=== PATIENT | male | born 1955 | race Caucasian/White ===

== ENCOUNTER 2017-03-19 14:34 | Emergency (ER) | payer OTHER ==
[~2017-03-19] VITALS: Ht 180.3 cm; Wt 79.4 kg
--- NOTE | 2017-03-19 15:18 | ED CARDIAC/CP/PALPITATIONS ---
History of Present Illness General Chief Complaint: Trunk Injury Stated Complaint: RIB PAIN, S/P FALL Source: patient Exam Limitations: no limitations Vital Signs & Intake/Output Vital Signs & Intake/Output Vital Signs Date Time Temp Pulse Resp B/P B/P Pulse O2 O2 Flow FiO2 Mean Ox Delivery Rate 03/19 2024 97.2 21 16 140/50 97 Room Air 03/19 1900 97.3 22 16 146/68 96 03/19 1829 23 16 140/50 96 03/19 1745 24 16 138/80 96 03/19 1715 21 16 140/80 97 03/19 1648 97.2 22 16 168/74 98 03/19 1525 140/48 03/19 1500 97.0 15 142/40 99 Room Air Room Air ED Intake and Output 03/20 0000 03/19 1200 Intake Total Output Total Balance Patient 175 lb Weight Weight Reported by Patient Measurement Method Allergies Coded Allergies: No Known Allergies (03/19/17) Reconcile Medications No Known Home Medications Triage Note: PT TO ED FOR MID UPPER BACK PAIN. PT HAD EPISODE OF SUDDEN ONSET OF SHARP PAIN TO MID UPPER BACK THAT CAUSED PT TO GET DIZZY AND THEN PASSED OUT. PT THINKS HE HIT HIS BACK ON THE TOILET WHEN HE FELL AND NOW PAIN IS WORSE. PT DENIES CHEST PAIN. DENIES SOB DURING INCIDENT. NO ACUTE DISTRESS NOTED. PT THINKS HE BROKE A RIB ALSO. Triage Nurses Notes Reviewed? yes HPI: 61-year-old male arrived to triage to room 3 for evaluation of left back pain. The patient reports that he had a sudden onset of left sharp stabbing back pain which then caused him to fall and hit his back against the same area. He just got out of the shower and was shaving when this occurred. Denies any trauma before that or heavy lifting or twisting. He thinks he passed out for a few seconds after he hit his back because of the horrific pain. He remembers the whole event. He denies any chest pain or shortness of breath. He was found to be bradycardic at triage and brought right back to room 3 for further evaluation. He denies any significant past medical or surgical history. He reports he drinks 2 or 3 beerS DAILY. He denies any history of Lyme disease. Call made out to Dr. Angel (NENITA FINLEY APRN) Past History Travel History Traveled to [place] past 21 day No Medical History Any Pertinent Medical History? 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 No (NENITA FINLEY APRN) Review of Systems Review of Systems Constitutional: Reports: no symptoms. EENTM: Reports: no symptoms. Respiratory: Reports: no symptoms. Cardiovascular: Reports: no symptoms. GI: Reports: no symptoms. Genitourinary: Reports: no symptoms. Musculoskeletal: Reports: back pain. Skin: Reports: no symptoms. Neurological/Psychological: Reports: no symptoms. Hematologic/Endocrine: Reports: no symptoms. Immunologic/Allergic: Reports: no symptoms. All Other Systems: Reviewed and Negative (NENITA FINLEY APRN) Physical Exam Physical Exam General Appearance: well developed/nourished, no apparent distress, alert, awake , mild distress Head: atraumatic, normal appearance Eyes: Bilateral: normal appearance, PERRL, EOMI. Ears, Nose, Throat: normal pharynx, normal ENT inspection Neck: normal inspection, supple, full range of motion Respiratory: normal breath sounds, TENDERNESS LEFT RIBS POSTERIORLY Cardiovascular: bradycardia Peripheral Pulses: 2+ radial (R), 2+ radial (L) Gastrointestinal: normal bowel sounds, soft, non-tender Back: SEE DIAGRAM WHERE PAIN IS Extremities: normal inspection, normal capillary refill, normal range of motion, no edema Neurologic/Psych: no motor/sensory deficits, awake, alert, oriented x 3, normal gait, normal mood/affect Skin: intact, normal color, warm/dry Core Measures ACS in differential dx? Yes Severe Sepsis Present: No Septic Shock Present: No (NENITA FINLEY APRN) Progress Differential Diagnosis: AMI, aortic dissection, musculoskeletal pain, pneumothorax, RIB FRACTURE, eLECTROLYTE IMBALANCE Plan of Care: Orders Procedure Date/time Status TROPONIN LEVEL 03/19 1811 Complete EKG 03/19 181 Active Add-on Test (ER Only) 03/19 1532 Active Add-on Test (ER Only) 03/19 1522 Active Saline Lock 03/19 1509 Active Telemetry/Picker Machine Operator 03/19 1509 Active TROPONIN LEVEL 03/19 1502 Complete COMPREHENSIVE METABOLIC PANEL 03/19 1502 Complete CBC WITHOUT DIFFERENTIAL 03/19 1502 Complete EKG 03/19 1501 Active THYROID STIMULATING HORMONE 03/19 1500 Complete MAGNESIUM 03/19 1500 Complete LYME TITRE 03/19 1500 Active ETHANOL 03/19 1500 Complete Laboratory Tests 03/19/17 1831: Troponin I 0.03 03/19/17 1704: Urine Color Cancelled, Urine Clarity Cancelled, Urine pH Cancelled, Ur Specific [place] Cancelled, Urine Protein Cancelled, Urine Ketones Cancelled, Urine Nitrite Cancelled, Urine Bilirubin Cancelled, Urine Urobilinogen Cancelled, Ur Leukocyte Esterase Cancelled, Ur Microscopic Cancelled, Urine Hemoglobin Cancelled, Urine Glucose Cancelled 03/19/17 1500: Anion Gap 14, Estimated GFR > 60, BUN/Creatinine Ratio 20.0, Glucose 138 H, Calcium 9.4, Magnesium 2.1, Total Bilirubin 0.9, AST 25, ALT 35, Alkaline Phosphatase 79, Troponin I 0.01, Total Protein 7.9, Albumin 4.5, Globulin 3.4, Albumin/Globulin Ratio 1.3, TSH 0.724, CBC w Diff NO MAN DIFF REQ, RBC 5.17, MCV 90.5, MCH 29.8, RDW 14.9 H, MPV 8.8, Gran % 93.5 H, Lymphocytes % 4.7 L, Monocytes % 1.1 L, Eosinophils % 0.3, Basophils % 0.4, Absolute Granulocytes 16.4 H, Absolute Lymphocytes 0.8 L, Absolute Monocytes 0.2, Absolute Eosinophils 0.1, Absolute Basophils 0.1, PUBS MCHC 32.9 L, Lyme Disease Antibody Pending, Serum Alcohol < 10.0 Initial ED EKG: COMPLETE HEART BLOCK Comments: 3:32 PM patient remains on the heart monitor with pacer pads on his chest. Heart rate remains in the 20s. He is asymptomatic at this time with a stable blood pressure of 140/80. He is complaining just of left sided back pain. Dr. Angel as been notified. dR. Hansen IN TO EVAL. 4:44 PM patient back from CAT scan abdomen and pelvis rule out aortic dissection. There is still a possibility of [place] due to T-wave inversions/[place] noted on ECG. PATIENT: KATERINE DOWLING PRESENT AGE: 61 PATIENT ACCOUNT NO: [id number] : 53 LOCATION: [facility] ORDERING PHYSICIAN: NENITA FINLEY APRN SERVICE DATE: 03/19/17-6191 EXAM TYPE: CAT - CT ABD & PELVIS ANGIOGRAM; CTA CHEST-AORTIC DISSECTION EXAMINATION: CT ANGIOGRAM CHEST CT ANGIOGRAM ABDOMEN AND PELVIS CLINICAL INFORMATION: Left-sided back pain, now in complete heart block. COMPARISON: None TECHNIQUE: Multiple axial noncontrast images through the chest, abdomen and pelvis were obtained. Following intravenous administration of 120 mL of Optiray [address] imaging of the chest, abdomen and pelvis is acquired as per CT angiography protocol. Multiplanar reformatted images are submitted for review. DLP: 1104.48 mGy-cm FINDINGS: VASCULAR FINDINGS: The thoracic and abdominal aorta is normal in caliber and is well opacified. There is no evidence of aortic dissection. There is mild calcific atherosclerosis in the aortic arch. Iidz-ro-[id number] scattered calcific atherosclerosis of the abdominal aorta and iliac arteries is noted. The ascending aorta measures 2.9 cm and descending thoracic aorta measures 2.5 cm in maximum AP diameter. The aortic arch is also normal in caliber measuring 2.6 cm in transverse dimension. There are moderate coronary calcifications. There is mild prominence of the main pulmonary trunk and left main pulmonary artery. There is no filling defect in the pulmonary arterial tree to suggest pulmonary embolism. The SMA, celiac axis and SAMIRA are normal in caliber and well opacified. There are single renal arteries bilaterally which are normal in caliber and well opacified. The iliac arteries are normal in caliber and well opacified. CHEST: Moderate changes of centrilobular emphysema with upper lobe predominance are noted. There are paraseptal emphysematous changes at the lung apices. A 0.5 cm pleural-based nodule is noted at the left lung apex posterolaterally (series 4 image 88). There is a pleural-based 0.6 x 0.8 cm nodule in the posterior left upper lobe laterally (series 4 image [id number]). There is a 0.4 cm subpleural nodule in the right upper lobe posteriorly (series 4 image 105). There is no evidence of mediastinal, hilar or axillary adenopathy. The visualized thyroid gland is unremarkable. Trachea and central bronchi are well patent. There is mild cardiomegaly. No pericardial or pleural effusions. The chest wall soft tissues are unremarkable. ABDOMEN AND PELVIS: The liver is normal in size, shape and attenuation. No focal liver lesion or biliary ductal dilatation is noted. The gallbladder is physiologically distended. A small calcified gallstone is present. No evidence of gallbladder wall thickening or pericholecystic inflammatory changes. The spleen, adrenal glands, pancreas and kidneys are unremarkable. The stomach and small bowel are not dilated. The appendix is normal. The colon is normal in caliber. No evidence of colonic wall thickening or pericolonic fat stranding. The bladder is underdistended, however, grossly unremarkable. Coarse prostatic calcifications are noted. The prostate measures 4.9 cm in maximum transverse dimension. The seminal vesicles are normal. There is no evidence of free intraperitoneal air or fluid. No inflammatory changes or nodularity seen in the omentum and mesentery. There is no evidence of pathologically enlarged lymph nodes. No significant abdominal wall hernia. There is a small umbilical hernia containing fat. OSSEOUS STRUCTURES: No acute or suspicious abnormality is noted in the chest, abdomen or pelvis. Multilevel minimal degenerative changes are noted throughout the thoracolumbar spine. IMPRESSION: 1. No evidence of thoracic or abdominal aortic dissection or aneurysm. There is scattered calcific atherosclerosis of the aorta. Moderate coronary calcifications. 2. No evidence of pulmonary embolism. 3. Mild prominence of the main pulmonary trunk and left main pulmonary artery may suggest pulmonary arterial hypertension. 4. Xgbnpjej-pc-klrqjf changes of emphysema with upper lobe predominance. At least 3 pulmonary nodules in the bilateral upper lobes as described above with the largest one in the left upper lobe with a mean diameter of 0.[address] follow-up in 3 months. According to the UPDATED 2017 Fleischner Society recommendations, the advised follow-up imaging for multiple solid nodules, the largest measuring 6 mm or greater, is: LOW RISK PATIENT: CT at 3-6 months, then consider CT at 18-24 months. HIGH RISK PATIENT: CT at 3-6 months, then at 18-24 months. 5. Cholelithiasis without acute cholecystitis. 6. Mild prostatomegaly. DICTATED BY: FRITZ DISLA,MARIYA DATE/TIME DICTATED:03/19/171648 YOUTH ADVOCATE:JOSHUA DATE/TIME TRANSCRIBED:03/19/171648 CONFIDENTIAL, DO NOT COPY WITHOUT APPROPRIATE AUTHORIZATION. <Electronically signed in Other Vendor System> SIGNED BY: MARIYA HU MD 03/19/17 1749 1759 PM explained CAT scan results to patient and family. Dr. Angel is now in the department and he will get in to see patient. 1941 Dr. Angel speaking with Dr. Hackett now about pacemaker insertion. DR. Alfonso PULP SCREEN OPERATOR FOR GROUP-UNABLE TO GET A HOLD OF SO CALLED and spoke to cardiology at [facility]. Dr. Chong Pérez is taking patient- cardiology. He will get CT surgery PA to arrange admission to the ICU. [facility] has been called. Additional findings on CAT scan discussed with family and patient. (NENITA FINLEY APRN) Departure Departure Time of Disposition: 2033 Disposition: OTHER [facility] (ACUTE) Condition: Stable Clinical Impression Primary Impression: Complete heart block Referrals: GAMEZ CULLEN DISLA (PCP/Family) Departure Forms: Customer Survey General Discharge Information Prescriptions: Current Visit Scripts No Known Home Medications (NENITA FINELY APRN) PA/ASSEMBLY WORKER Co-Sign Statement Statement: ED Attending supervision documentation- [X] I saw and evaluated the patient. I have also reviewed all the pertinent lab results and diagnostic results. I agree with the findings and the plan of care as documented in the PA's/ASSEMBLY WORKER's documentation. [X] I have reviewed the ED Record and agree with the PA's/ASSEMBLY WORKER's documentation. [] Additions or exceptions (if any) to the PAs/ASSEMBLY WORKER's note and plan are summarized below: [] (JESE DILSA,ALFIE Mccollum) Critical Care Note Critical Care Note Critical Care Time: 75-104 min (NENITA FINLEY APRN)
[2017-03-19 15:31] LABS: ABSOLUTE BASOPHIL COUNT 0.1 /CUMM (0.0-0.2); ABSOLUTE EOSINOPHIL COUNT 0.1 /CUMM (0.0-0.7); ABSOLUTE GRANULOCYTE CT 16.4 /CUMM (1.4-6.5); ABSOLUTE LYMPH COUNT 0.8 /CUMM (1.2-3.4); ABSOLUTE MONOCYTE COUNT 0.2 /CUMM (0.10-0.60); BASOPHIL % 0.4 % (0.0-2.0); EOSINOPHIL % 0.3 % (0-5); HEMATOCRIT 46.8 % (42-52); MEAN CORPUSCULAR HGB 29.8 PG (27.0-31.0); MEAN CORPUSCULAR HGB CONC 32.9 G/DL (33.0-37.0); MEAN CORPUSCULAR VOLUME 90.5 FL (80.0-94.0); MEAN PLATELET VOLUME 8.8 FL (7.4-10.4); PLATELET COUNT 256 /CUMM (130-400); RBC DISTRIBUTION WIDTH 14.9 % (11.5-14.5); RED BLOOD CELL CT 5.17 /CUMM (4.70-6.10); WHITE BLOOD CELL COUNT 17.5 /CUMM (4.8-10.8)
[2017-03-19 15:40] LABS: GRANULOCYTE % 93.5 % (42.2-75.2)
--- NOTE | 2017-03-19 17:49 | CT SCAN REPORT ---
EXAMINATION: CT ANGIOGRAM CHEST CT ANGIOGRAM ABDOMEN AND PELVIS CLINICAL INFORMATION: Left-sided back pain, now in complete heart block. COMPARISON: None TECHNIQUE: Multiple axial noncontrast images through the chest, abdomen and pelvis were obtained. Following intravenous administration of 120 mL of Optiray [address] imaging of the chest, abdomen and pelvis is acquired as per CT angiography protocol. Multiplanar reformatted images are submitted for review. DLP: 1104.48 mGy-cm FINDINGS: VASCULAR FINDINGS: The thoracic and abdominal aorta is normal in caliber and is well opacified. There is no evidence of aortic dissection. There is mild calcific atherosclerosis in the aortic arch. [id number] scattered calcific atherosclerosis of the abdominal aorta and iliac arteries is noted. The ascending aorta measures 2.9 cm and descending thoracic aorta measures 2.5 cm in maximum AP diameter. The aortic arch is also normal in caliber measuring 2.6 cm in transverse dimension. There are moderate coronary calcifications. There is mild prominence of the main pulmonary trunk and left main pulmonary artery. There is no filling defect in the pulmonary arterial tree to suggest pulmonary embolism. The SMA, celiac axis and SAMIRA are normal in caliber and well opacified. There are single renal arteries bilaterally which are normal in caliber and well opacified. The iliac arteries are normal in caliber and well opacified. CHEST: Moderate changes of centrilobular emphysema with upper lobe predominance are noted. There are paraseptal emphysematous changes at the lung apices. A 0.5 cm pleural-based nodule is noted at the left lung apex posterolaterally (series 4 image 88). There is a pleural-based 0.6 x 0.8 cm nodule in the posterior left upper lobe laterally (series 4 image [id number]). There is a 0.4 cm subpleural nodule in the right upper lobe posteriorly (series 4 image 105). There is no evidence of mediastinal, hilar or axillary adenopathy. The visualized thyroid gland is unremarkable. Trachea and central bronchi are well patent. There is mild cardiomegaly. No pericardial or pleural effusions. The chest wall soft tissues are unremarkable. ABDOMEN AND PELVIS: The liver is normal in size, shape and attenuation. No focal liver lesion or biliary ductal dilatation is noted. The gallbladder is physiologically distended. A small calcified gallstone is present. No evidence of gallbladder wall thickening or pericholecystic inflammatory changes. The spleen, adrenal glands, pancreas and kidneys are unremarkable. The stomach and small bowel are not dilated. The appendix is normal. The colon is normal in caliber. No evidence of colonic wall thickening or pericolonic fat stranding. The bladder is underdistended, however, grossly unremarkable. Coarse prostatic calcifications are noted. The prostate measures 4.9 cm in maximum transverse dimension. The seminal vesicles are normal. There is no evidence of free intraperitoneal air or fluid. No inflammatory changes or nodularity seen in the omentum and mesentery. There is no evidence of pathologically enlarged lymph nodes. No significant abdominal wall hernia. There is a small umbilical hernia containing fat. OSSEOUS STRUCTURES: No acute or suspicious abnormality is noted in the chest, abdomen or pelvis. Multilevel minimal degenerative changes are noted throughout the thoracolumbar spine. IMPRESSION: 1. No evidence of thoracic or abdominal aortic dissection or aneurysm. There is scattered calcific atherosclerosis of the aorta. Moderate coronary calcifications. 2. No evidence of pulmonary embolism. 3. Mild prominence of the main pulmonary trunk and left main pulmonary artery may suggest pulmonary arterial hypertension. 4. Lsysaflb-us-yqrmxw changes of emphysema with upper lobe predominance. At least 3 pulmonary nodules in the bilateral upper lobes as described above with the largest one in the left upper lobe with a mean diameter of 0.[address] follow-up in 3 months. According to the UPDATED 2017 Fleischner Society recommendations, the advised follow-up imaging for multiple solid nodules, the largest measuring 6 mm or greater, is: LOW RISK PATIENT: CT at 3-6 months, then consider CT at 18-24 months. HIGH RISK PATIENT: CT at 3-6 months, then at 18-24 months. 5. Cholelithiasis without acute cholecystitis. 6. Mild prostatomegaly.
--- NOTE | 2017-03-19 18:49 | Cons- Cardiology ---
General Information and HPI Consulting Request Date of Consult: 03/19/17 Requested By: Butch SAWANT DAVID Reason for Consult: Complete heart block. Source of Information: patient, family, old records Exam Limitations: no limitations History of Present Illness: Mr. Louis Harrell is a 61-year-old male with a history of long-standing heavy tobacco use and previously treated hypertension who presented to the ED earlier following a syncopal episode at home and who was found to be in complete heart block with a ventricular escape of around 24 bpm with evidence of a left posterior fascicular block, right bundle branch block, and markedly abnormal deep precordial T-wave abnormalities. He states that he was in his usual good state of health and after taking a shower began shaving. When he was approximally penitentiary done he experienced profound dizziness and felt a severe sharp pain in the left side of his back that he thinks lasted approximately 10 seconds before he lost consciousness. He came to on the bathroom floor and realized he had struck his back on the toilet. He was aware of his surroundings, but still felt some dizziness. He denied any other symptoms. When the back discomfort persisted he sought ED evaluation. He denies any history of coronary, valvular, dysrhythmic/conduction disease, or cardiomyopathy. He hunts once yearly with his son and did so back in August 2016, but denies noticing any tick bites, rashes, etc. around that time or since. Allergies/Medications Allergies: Coded Allergies: No Known Allergies (03/19/17) Home Med List: No Known Home Medications Review of Systems Review of Systems: A 14 point system review was obtained and was noncontributory, other than for the fact that he wears glasses. 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 Surgical History Surgical History: 1 Psychosocial History ETOH Use: occasional use Illicit Drug Use: denies illicit drug use Exam & Diagnostic Data Vital Signs and I&O Vital Signs Date Time Temp Pulse Resp B/P B/P Pulse O2 O2 Flow FiO2 Mean Ox Delivery Rate 03/19 1829 23 16 140/50 96 03/19 1745 24 16 138/80 96 03/19 1715 21 16 140/80 97 03/19 1648 97.2 22 16 168/74 98 03/19 1525 140/48 03/19 1500 97.0 15 142/40 99 Room Air Room Air Intake & Output 03/19 1600 03/19 0800 03/19 0000 03/18 1600 03/18 0800 03/18 0000 Intake Total Output Total Balance Patient 175 lb Weight Weight Reported by Patient Measurement Method Physical Exam: Well-developed, well-nourished middle-aged male in no acute distress with nasal oxygen and transcutaneous pacemaker pads in place. Vital signs: See above. HEENT: Normocephalic, atraumatic, EOMI, slightly dry mucous membranes. Neck: No JVD, no bruits. Lungs: Clear to auscultation. Heart: S1, S2 with no murmur, gallop, or rub appreciated. PMI not well felt. Abdomen: Soft, nontender, positive bowel sounds. Extremities: No edema. Peripheral pulses: Symmetrical and intact. Labs/Isacc Results: Laboratory Tests 03/19 03/19 1831 1500 Chemistry Sodium (137 - 145 mmol/L) 137 Potassium (3.5 - 5.1 mmol/L) 4.3 Chloride (98 - 107 mmol/L) 107 Carbon Dioxide (22 - 30 mmol/L) 17 L Anion Gap (5 - 16) 14 BUN (9 - 20 mg/dL) 16 Creatinine (0.7 - 1.2 mg/dL) 0.8 Estimated GFR (>60 ml/min) > 60 BUN/Creatinine Ratio (7 - 25 %) 20.0 Glucose (65 - 99 mg/dL) 138 H Calcium (8.4 - 10.2 mg/dL) 9.4 Magnesium (1.6 - 2.3 mg/dL) 2.1 Total Bilirubin (0.2 - 1.3 mg/dL) 0.9 AST (17 - 59 U/L) 25 ALT (21 - 72 U/L) 35 Alkaline Phosphatase (< 127 U/L) 79 Troponin I (<0.11 ng/ml) 0.03 0.01 Total Protein (6.3 - 8.2 g/dL) 7.9 Albumin (3.5 - 5.0 g/dL) 4.5 Globulin (1.9 - 4.2 gm/dL) 3.4 Albumin/Globulin Ratio (1.1 - 2.2 %) 1.3 TSH (0.270 - 4.200 uIU/mL) 0.724 Hematology CBC w Diff NO MAN DIFF REQ WBC (4.8 - 10.8 /CUMM) 17.5 H RBC (4.70 - 6.10 /CUMM) 5.17 Hgb (14.0 - 18.0 G/DL) 15.4 Hct (42 - 52 %) 46.8 MCV (80.0 - 94.0 FL) 90.5 MCH (27.0 - 31.0 PG) 29.8 RDW (11.5 - 14.5 %) 14.9 H Plt Count (130 - 400 /CUMM) 256 MPV (7.4 - 10.4 FL) 8.8 Gran % (42.2 - 75.2 %) 93.5 H Lymphocytes % (20.5 - 51.1 %) 4.7 L Monocytes % (1.7 - 9.3 %) 1.1 L Eosinophils % (0 - 5 %) 0.3 Basophils % (0.0 - 2.0 %) 0.4 Absolute Granulocytes (1.4 - 6.5 /CUMM) 16.4 H Absolute Lymphocytes (1.2 - 3.4 /CUMM) 0.8 L Absolute Monocytes (0.10 - 0.60 /CUMM) 0.2 Absolute Eosinophils (0.0 - 0.7 /CUMM) 0.1 Absolute Basophils (0.0 - 0.2 /CUMM) 0.1 PUBS MCHC (33.0 - 37.0 G/DL) 32.9 L Serology Lyme Disease Antibody Pending Toxicology Serum Alcohol (<10 MG/DL) < 10.0 Diagnostic Data EKG Results (03/19/2017): Complete heart block with ventricular escape beat of 24 bpm, left posterior fascicular block, right bundle branch block, marked precordial T-wave abnormalities consistent with ischemia/and/or injury. No previous tracing available for comparison. Other Results CTA (03/19/2017): 1. No evidence of thoracic or abdominal aortic dissection or aneurysm. There is scattered calcific atherosclerosis of the aorta. Moderate coronary calcifications. 2. No evidence of pulmonary embolism. 3. Mild prominence of the main pulmonary trunk and left main pulmonary artery may suggest pulmonary arterial hypertension. 4. Kosfhhte-[id number] changes of emphysema with upper lobe predominance. At least 3 pulmonary nodules in the bilateral upper lobes as described above with the largest one in the left upper lobe with a mean diameter of 0.[address] follow-up in 3 months. According to the UPDATED 2017 Fleischner Society recommendations, the advised follow-up imaging for multiple solid nodules, the largest measuring 6 mm or greater, is: LOW RISK PATIENT: CT at 3-6 months, then consider CT at 18-24 months. HIGH RISK PATIENT: CT at 3-6 months, then at 18-24 months. 5. Cholelithiasis without acute cholecystitis. 6. Mild prostatomegaly. Assessment/Plan Assessment/Plan [id number] w/ hx heavy tobacco use and previously treated HTN who presented to the ED earlier following a syncopal episode at home and who was found to be in CHB with a ventricular escape of around 24 bpm with evidence of a LPFB, RBBB, and markedly abnormal deep precordial T-wave abnormalities c/w probable ischemia and/or injury. Recommendations: * Admitted to ICU, placed transcutaneous pacemaker pads and have the Zoll device at the ready. * Contact CT surgery (Chris Hackett M.D.) and make him aware that Mr. Harrell will require implantation of a permanent pacemaker. * Keep patient nothing by mouth. * Serial cardiac enzymes and follow-up ECGs. * Screen for Lyme disease. * DVT prophylaxis. * Postoperative counseling for smoking cessation. * Outpatient follow-up of pulmonary nodules. * Outpatient follow-up of coronary calcifications. Further recommendations will follow, Thank you. Consult Acknowledgment - Thank you for your consult request.
[2017-03-19 20:24] VITALS: BP 140/50
== END 2017-03-19 20:41 | disposition short-term general hospital (02) ==
LOC: ERH 14:34
PROVIDERS: Emergency Medicine
DX: I44.2 Atrioventricular block, complete (principal); Z72.0 Tobacco use; M54.9 Dorsalgia, unspecified; F10.10 Alcohol abuse, uncomplicated
CPT/HCPCS: 86618; 74174; 93005; 93010; 96374; 99291; G0480